=== PATIENT | male | born 1985 | race Caucasian/White ===

== ENCOUNTER 2023-06-04 19:49 | Emergency (ER) | payer SELFPAY ==
[2023-06-04 19:55] VITALS: BP 129/74
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
[2023-06-04] MEDS: TYLENOL 1000 MG PO (21:56)
[2023-06-04] MEDS: FLEXERIL 10 MG PO (21:57)
[2023-06-04 22:10] VITALS: BP 127/77
== END 2023-06-04 22:19 | disposition home or self-care (01) ==
LOC: EMR 19:49
PROVIDERS: EMERGENCY PHYSICIAN Emergency Medicine
DX: S16.1XXA Strain of muscle, fascia and tendon at neck level, initial encounter (principal); G44.309 Post-traumatic headache, unspecified, not intractable; V49.88XA Car occupant (driver) (passenger) injured in other specified transport accidents, initial encounter
CPT/HCPCS: 99284; 70450; 72125